=== PATIENT | female | born 1970 | race Caucasian/White ===

== ENCOUNTER 2016-12-27 09:45 | Emergency (ER) | payer BC ==
--- NOTE | 2016-12-27 10:17 | ER Document Report ---
ED Hand/Wrist Injury - General Chief Complaint: Wrist Injury Stated Complaint: RIGHT WRIST INJURY Time Seen by Provider: 12/27/16 09:58 Notes: 46 yo female right hand dominant, c/o pain to right hand/wrist x 3 days. 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 pain has been escalating past 3 days. TRAVEL OUTSIDE OF THE [place] IN LAST 30 DAYS: No - HPI Injury to: Wrist - right Onset: Other - 3 days Timing: Constant Quality of pain: Sharp, Throbbing - Related Data Allergies/Adverse Reactions: latex [Latex] Allergy (Intermediate, Verified 12/27/16 10:23) N&V only Past Medical History - General Information source: Patient - Social History Smoking Status: Current Every Day Smoker Frequency of alcohol use: None Drug Abuse: None Lives with: Family Family History: Reviewed & Not Pertinent Patient has suicidal ideation: No Patient has homicidal ideation: No - Past Medical History Cardiac Medical History: Reports: None Neurological Medical History: Denies: Hx Seizures Renal/ Medical History: Reports: Hx Ovarian Cysts. Denies: Hx Peritoneal Dialysis Malignancy Medical History: Reports: Hx Cervical Cancer - age 20 (LEEP) Musculoskeltal Medical History: Past Surgical History: Reports: Hx Section, Hx Tubal Ligation. Denies : Hx Pacemaker Review of Systems - Review of Systems Constitutional: No symptoms reported EENT: No symptoms reported Cardiovascular: No symptoms reported Respiratory: No symptoms reported Gastrointestinal: No symptoms reported Genitourinary: No symptoms reported Female Genitourinary: No symptoms reported Musculoskeletal: See HPI Skin: No symptoms reported Hematologic/Lymphatic: No symptoms reported Neurological/Psychological: No symptoms reported Physical Exam - Vital signs Vitals: Temp Pulse Resp BP Pulse Ox 97.6 F 67 20 116/73 98 12/27/16 09:49 12/27/16 09:49 12/27/16 09:49 12/27/16 09:49 12/27/16 09:49 Interpretation: Normal - General General appearance: Appears well, Alert - HEENT Head: Normocephalic, Atraumatic Eyes: Normal Pupils: PERRL - Respiratory Respiratory status: No respiratory distress Chest status: Nontender Breath sounds: Normal Chest palpation: Normal - Cardiovascular Rhythm: Regular Heart sounds: Normal auscultation Murmur: No - Abdominal Inspection: Normal Distension: No distension Bowel sounds: Normal Tenderness: Nontender Organomegaly: No organomegaly - Back Back: Normal, Nontender - Extremities General upper extremity: Normal inspection, Nontender, Normal color, Normal ROM , Normal temperature General lower extremity: Normal inspection, Nontender, Normal color, Normal ROM , Normal temperature, Normal weight bearing. No: Jacob's sign Hand: Tender - right lateral hand along 5th metacarpal. no thenar tenderness, no snuffbox tenderness. mild soft tissue over distal ulnar styloid. no deformity. distal SMC intact. + pain with flexion/extension - Neurological Neuro grossly intact: Yes Cognition: Normal Orientation: AAOx4 [place] Coma Scale Eye Opening: Spontaneous [place] Coma Scale Verbal: Oriented [place] Coma Scale Motor: Obeys Commands [place] Coma Scale Total: 15 Speech: Normal Motor strength normal: LUE, RUE, LLE, RLE Sensory: Normal - Psychological Associated symptoms: Normal affect, Normal mood - Skin Skin Temperature: Warm Skin Moisture: Dry Skin Color: Normal Course - Re-evaluation Re-evalutation: 12/27/16 10:57 xray and rad report reviewed. No fracture or bone lesion or carpal malalignment. Mild soft tissue swelling. No radiopaque foreign body. IMPRESSION: No fracture evident. results reviewed with patient. pt has own wrist splint. pt stable for discharge - Vital Signs Vital signs: Temp Pulse Resp BP Pulse Ox 98.2 F 70 20 117/80 98 12/27/16 10:53 12/27/16 10:53 12/27/16 10:53 12/27/16 10:53 12/27/16 10:53 Discharge - Discharge Clinical Impression: Right wrist injury Qualifiers: Encounter type: initial encounter Qualified Code(s): S69.91XA - Unspecified injury of right wrist, hand and finger(s), initial encounter Condition: Stable Disposition: HOME, SELF-CARE Instructions: Ice & Elevation ([facility]), Wrist Sprain ([facility]), Temporary Splint ([facility]) , Ibuprofen (General) ([facility]) Additional Instructions: Your xrays are negative for fracture ice and elevate your wrist as much as possible wear your splint for comfort and protection follow up with your primary care if pain persists more than 10 days Prescriptions: Ibuprofen [Motrin 800 Mg Tablet] 800 mg PO Q6H #20 tablet
--- NOTE | 2016-12-27 10:28 | RADIOLOGY REPORT (SQ) ---
EXAM DESCRIPTION: WRIST RIGHT 3 VIEWS COMPLETED DATE/TIME: 12/27/2016 10:15 am REASON FOR STUDY: wrist pain COMPARISON: None. NUMBER OF VIEWS: Three views right wrist. LIMITATIONS: None. FINDINGS: No fracture or bone lesion or carpal malalignment. Mild soft tissue swelling. No radiopa que foreign body. OTHER: No other significant finding. IMPRESSION: No fracture evident. TECHNICAL DOCUMENTATION: JOB ID: [id number]
[2016-12-27 10:55] VITALS: BP 117/80
== END 2016-12-27 11:28 | disposition home or self-care (01) ==
LOC: ER 09:45
DX: S69.91XA Unspecified injury of right wrist, hand and finger(s), initial encounter (principal); X58.XXXA Exposure to other specified factors, initial encounter; F17.200 Nicotine dependence, unspecified, uncomplicated; Z91.040 Latex allergy status; Z85.41 Personal history of malignant neoplasm of cervix uteri
CPT/HCPCS: 99283